=== PATIENT | female | born 1975 | race Caucasian/White ===

== ENCOUNTER → 2025-01-07 15:16 | Outpatient (CLI) | payer OTHER, SELFPAY ==
--- NOTE | 2025-01-07 15:20 | DI.MRI.S_ITS ---
PROCEDURE: MR ANKLE RT WO CON INDICATIONS: RT ankle/heal pain TECHNIQUE: Noncontrast sagittal T1 spin echo and T2 fast spin echo with fat saturation, axial proton density fast spin echo and T2 fast spin echo with fat saturation, coronal T1 spin echo and T2 fast spin echo with fat saturation through the ankle/hindfoot. COMPARISON: [facility] [place], CR, XR CALCANEUS RIGHT, 12/02/2024, 14:45. FINDINGS: Image quality: Excellent. Bones: Mild marrow edema is present at the posterior-superior calcaneal tuberosity (7/10) subjacent to the Achilles insertion. The anterior process of the calcaneus and lateral process of the talus are intact. No talar dome osteochondral defect is seen. Joints: There is no significant joint effusion. A small amount of fluid is present in the Gruberi bursa (7/10). 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 Sinus tarsi: The sinus tarsi signal is normal. Syndesmotic ligaments: The anterior and posterior inferior syndesmotic ligaments are normal. Lateral collateral ligament: There is a chronic, full-thickness tear of the anterior talofibular ligament (4/18). There is intermediate signal and thickening of the posterior talofibular and calcaneofibular ligaments. Deltoid ligament: The visualized components of the deltoid ligament, that being the posterior tibiotalar and tibiospring ligaments, are normal. Calcaneonavicular spring ligament: The superomedial component of the calcaneonavicular spring ligament is grossly intact. Tendons: There is mild thickening and intermediate signal of the Achilles tendon up to 7 mm (4/19) in the AP dimension without a focal tear. The extensor, flexor and peroneal tendons are normal. The peroneal tendons are appropriately situated within the retromalleolar groove, and the superficial peroneal retinaculum is intact. Plantar aponeurosis: Minimal perifascial edema is present around the central band of the plantar fascia at the heel (7/13). Plantar musculature: There are no findings of denervation involving the plantar muscles of the foot. Nerves: The visualized nerves are unremarkable. Other: A small amount of fluid is present in the retrocalcaneal bursa (/11). IMPRESSION: 1. Mild Achilles tendinosis with retrocalcaneal bursitis and reactive calcaneal tuberosity marrow edema. 2. Minimal plantar fasciitis of the central band at the heel. 3. 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 4. Mild tibiotalar osteoarthritis. Dictated by: Master Regalado M.D. on 01/07/2025 at 20:54 Approved by: Matser Regalado M.D. on 01/07/2025 at 21:00
== END ==
PROVIDERS: PCP Physician Assistant; Referring Provider Physician Assistant; Visit Provider Podiatrist
DX: M76.61 Achilles tendinitis, right leg (principal); M79.671 Pain in right foot; S93.491A Sprain of other ligament of right ankle, initial encounter; S93.411A Sprain of calcaneofibular ligament of right ankle, initial encounter; M19.071 Primary osteoarthritis, right ankle and foot
CPT/HCPCS: 73721